=== PATIENT | male | born 1985 | race Caucasian/White ===

== ENCOUNTER 2018-02-26 04:09 | Emergency (ER) | payer SELFPAY ==
[2018-02-26] MEDS ORDERED: FAMOTIDINE 20 MG/50 ML IVPB 20 MG/50 ML MG IVPB ONE ×2 (04:19→04:32)
[2018-02-26] MEDS ORDERED: ONDANSETRON 4 MG/2 ML VIAL IVPUSH ONE (04:19)
[2018-02-26] MEDS ORDERED: SODIUM CHLORIDE 1,000 ML IV STA (04:19)
[2018-02-26 04:22] VITALS: BMI 22.2
[2018-02-26] MEDS ORDERED: ONDANSETRON 4 MG/2 ML VIAL ONE (04:32)
--- NOTE | 2018-02-26 04:54 | PDOC ---
History of Present Illness - General Chief Complaint: Pain Stated Complaint: VOMITING Time Seen by Provider: 02/26/18 04:19 History Source: Patient Exam Limitations: No Limitations - History of Present Illness Initial Comments: 02/26/18 04:27 Patient is a 32M no significant medical history here today complaining of sudden onset of vomiting that woke him from sleep this morning. He also endorses associated LLQ abdominal pain. Patient states that he initially vomited brownish liquid with bright red blood after several episodes of vomiting. Denies fevers, chills. Denies dysuria. Last bowel movement today, endorses several episodes of diarrhea over the past few weeks. Endorses occasional alcohol, marijuana use. Denies other illicits. Past History - Past Medical History Allergies/Adverse Reactions: Allergies Allergy/AdvReac Type Severity Reaction Status Date / Time No Known Allergies Allergy Verified 02/26/18 04:18 Home Medications: Ambulatory Orders NK [No Known Home Medication] 02/26/18 COPD: No - Immunization History Immunization Up to Date: Yes - Suicide/Smoking/Psychosocial Hx Smoking History: Current every day smoker Have you smoked in the past 12 months: Yes Number of Cigarettes Smoked Daily: 12 Information on smoking cessation initiated: Yes 'Breaking Loose' booklet given: 02/26/18 Hx Alcohol Use: No Drug/Substance Use Hx: Yes (MARIJUANA) Substance Use Type: Marijuana Review of Systems - Review of Systems Comments:: 02/26/18 04:56 GENERAL/CONSTITUTIONAL: No fever or chills. No weakness. HEAD, EYES, EARS, NOSE AND THROAT: No change in vision. No sore throat. CARDIOVASCULAR: No chest pain or shortness of breath RESPIRATORY: No cough, wheezing, or hemoptysis. GASTROINTESTINAL: +nausea, vomiting, diarrhea GENITOURINARY: No dysuria, frequency, or change in urination. MUSCULOSKELETAL: No joint or muscle swelling or pain. No neck or back pain. SKIN: No rash NEUROLOGIC: No headache, vertigo, loss of consciousness, or change in strength/ sensation. ENDOCRINE: No increased thirst. No abnormal weight change HEMATOLOGIC/LYMPHATIC: No anemia, easy bleeding, or history of blood clots. ALLERGIC/IMMUNOLOGIC: No hives or skin allergy. *Physical Exam - Vital Signs Last Vital Signs Temp Pulse Resp BP Pulse Ox 98.4 F 59 L 18 118/76 100 02/26/18 04:18 02/26/18 04:18 02/26/18 04:18 02/26/18 04:18 02/26/18 04:18 - Physical Exam Comments: 02/26/18 04:56 GENERAL: Awake, alert, and fully oriented, in no acute distress HEAD: No signs of trauma, normocephalic, atraumatic EYES: PERRLA, EOMI, sclera anicteric, conjunctiva clear ENT: Auricles normal inspection, hearing grossly normal, nares patent, oropharynx clear without exudates. Moist mucosa NECK: Normal ROM, supple, no lymphadenopathy, JVD, or masses LUNGS: No distress, speaks full sentences, clear to auscultation bilaterally HEART: Regular rate and rhythm, normal S1 and S2, no murmurs, rubs or gallops, peripheral pulses normal and equal bilaterally. ABDOMEN: Soft, +llq tenderness, normoactive bowel sounds. No guarding, no rebound. No masses EXTREMITIES: Normal inspection, Normal range of motion, no edema. No clubbing or cyanosis. NEUROLOGICAL: Cranial nerves II through XII grossly intact. Normal speech, no focal sensorimotor deficits SKIN: Warm, Dry, normal turgor, no rashes or lesions noted. ED Treatment Course - LABORATORY CBC & Chemistry Diagram: 02/26/18 04:21 02/26/18 04:30 - RADIOLOGY Radiology Studies Ordered: Category Date Time Status ABDOMEN & PELVIS CT WITH CONTR [CT] Stat CT Scan 02/26/18 04:21 Ordered Medical Decision Making - Medical Decision Making 02/26/18 04:56 Patient is 32M here today with vomiting, diarrhea, and LLQ abdominal pain. Well appearing. Vital signs normal and stable. DDx includes, but is not limited to: diverticulitis, colitis, gastroenteritis. Will workup with abdominal labs, ct. Will treat with fluids, zofran, pepcid. 02/26/18 06:13 CBC, CMP reassuring. Lipase negative. UA pending. 02/26/18 06:48 CT shows no acute abdominal pathology. 02/26/18 06:49 UA clear. Patient tolerating PO. Given return precautions. Given outpatient follow up. *DC/Admit/Observation/Transfer Diagnosis at time of Disposition: Vomiting, Abdominal pain - Discharge Dispostion Condition at time of disposition: Good Decision to Admit order: No - Referrals Referrals: Reinaldo Bergman MD [Staff Physician] - [facility] [place] [Provider Group] - Patient Instructions Printed Discharge Instructions: DI for Abdominal Pain-Adult, DI for Vomiting - - Adult Additional Instructions: Please return if you have any new, worsening or concerning symptoms. Please follow up with your primary care physician this week. If you do not have a primary care physician one has been provided for you. You have also been given a referral for a GI specialist. - Post Discharge Activity
--- NOTE | 2018-02-26 04:55 | PDOC ---
Attending Attestation - Resident Resident Name: [email or web address] - ED Attending Attestation I have performed the following: I have examined & evaluated the patient, The case was reviewed & discussed with the resident, I agree w/resident's findings & plan, Exceptions are as noted - HPI HPI: 02/26/18 04:23 32 yo M presenting to the ER with a complaint of LLQ pain Symptoms began last night No fevers or chills No hematuria (+) nausea, no vomiting (-) diarrhea No rash Pt had prior hernia repair Reports pain is severe 02/26/18 05:42 - Physicial Exam PE: 02/26/18 04:21 GENERAL: The patient is in no acute distress. EYES: PERRLA, EOMI, sclera anicteric, conjunctiva clear. ENT: Ears normal, nares patent, oropharynx clear without exudates. Moist mucous membranes. NECK: Normal range of motion, supple LUNGS: Breath sounds equal, clear to auscultation bilaterally. No wheezes, and no crackles. HEART:Regular rate and rhythm, normal S1 and S2 without murmur, rub or gallop. ABDOMEN: Soft, mild LLQ tenderness, normoactive bowel sounds. No guarding, no rebound. EXTREMITIES: Normal range of motion, no edema NEUROLOGICAL: Cranial nerves II through XII grossly intact. Normal speech. No focal neurological deficits. SKIN: Warm, Dry, normal turgor, no rashes or lesions noted. - Medical Decision Making 02/26/18 05:42 Laboratory Tests 02/26/18 02/26/18 04:21 04:30 WBC 8.2 Hgb 14.2 Hct 42.4 Plt Count 237 Sodium 141 Potassium 4.2 Chloride 108 H Carbon Dioxide 31 BUN 9 Creatinine 0.6 L Random Glucose [address] was negative for acute intraabdominal pathology Will discharge to home Follow up with PMD Return to the ER for any other concerns or complaints Clinical impression: abdominal pain, initial presentation
[2018-02-26 04:56] LABS: BASO % 0.6 % (0-2.0); EOS % 5.4 % (0-4.5); HEMATOCRIT 42.4 % (35.4-49); HEMOGLOBIN 14.2 GM/dL (11.7-16.9); LYMPH % 29.3 % (8-40); MCH 29.7 pg (25.7-33.7); MCHC 33.5 g/dl (32.0-35.9); MEAN CELL VOLUME 88.4 fl (80-96); MEAN PLT VOLUME 8.2 fl (7.5-11.1); MONO % 6.3 % (3.8-10.2); NEUT % 58.4 % (42.8-82.8); PLATELET COUNT 237 K/MM3 (134-434); RBC 4.79 M/mm3 (4.00-5.60); RDW 13.9 % (11.9-15.9); WHITE BLOOD COUNT 8.2 K/mm3 (4.0-10.0)
[2018-02-26 05:02] LABS: ALBUMIN 3.6 g/dl (3.4-5.0); ANION GAP 2 MMOL/L (8-16); BILIRUBIN,TOTAL 0.3 mg/dL (0.2-1.0); BLOOD UREA NITROGEN 9 mg/dL (7-18); CALCIUM 8.6 mg/dL (8.5-10.1); CHLORIDE 108 mmol/L (98-107); CO2 31 mmol/L (21-32); CREATININE 0.6 mg/dL (0.7-1.3); GLUCOSE,RANDOM 92 mg/dL (74-106); LIPASE 186 U/L (73-393); SGPT/ALT 30 U/L (12-78); SODIUM 141 mmol/L (136-145); TOT PROT 7.3 g/dl (6.4-8.2)
[2018-02-26 05:03] LABS: ALK PHOS 54 U/L (45-117)
[2018-02-26 05:12] LABS: POTASSIUM 4.2 mmol/L (3.5-5.1); SGOT/AST 30 U/L (15-37)
[2018-02-26 06:38] LABS: URINE APPEARANCE CLEAR; URINE BILIRUBIN NEGATIVE (<2.0 mg/dL); URINE COLOR YELLOW; URINE GLUCOSE (UA) NEGATIVE (NEGATIVE); URINE KETONE NEGATIVE (NEGATIVE); URINE LEUK ESTERASE NEGATIVE (NEGATIVE); URINE NITRITE NEGATIVE (NEGATIVE); URINE PROTEIN NEGATIVE (NEGATIVE)
[2018-02-26 07:15] VITALS: BP 112/74; PULSE 63; TEMP 97.9
== END 2018-02-26 07:14 | disposition home or self-care (01) ==
LOC: JER 04:09
PROC: 3E0337Z Introduction of Electrolytic and Water Balance Substance into Peripheral Vein, Percutaneous Approach (ICD-10-PCS; principal; 2018-02-26)
DX: R10.84 Generalized abdominal pain (principal)
CPT/HCPCS: 36415; 74177-TC; 80053; 81003; 83690; 85025; 99283-25; J7030